=== PATIENT | male | born 1990 | race Two or more races ===

== ENCOUNTER 2018-05-23 12:18 | Emergency (ER) | payer MEDICAID ==
[~2018-05-23] VITALS: Ht 162.6 cm; Wt 78.5 kg
--- NOTE | 2018-05-23 12:34 | NUR ---
ED Nurse Note: Pt walked in to ED with spouse due to lower abdominal pain for over 1 month. no n/v/d. Pain 5/10 jerilyn. Monitor attached. Will cont to monitor.
--- NOTE | 2018-05-23 12:41 | NUR ---
ED Nurse Note: Blood drawn, urine collected and sent to lab.
[2018-05-23 13:18] LABS: ANION GAP 7 mmol/L (5-15); BLOOD UREA NITROGEN 16 mg/dL (7-18); CALCIUM 9.1 MG/DL (8.5-10.1); CARBON DIOXIDE 28 MMOL/L (21-32); CHLORIDE 103 MMOL/L (98-107); POTASSIUM 4.2 MMOL/L (3.5-5.1); SODIUM 138 MMOL/L (136-145)
[2018-05-23 13:19] LABS: APPEARANCE,URINE CLEAR; BASOPHILS % (AUTO) 1.3 % (0.0-2.0); BILIRUBIN, URINE NEGATIVE (NEGATIVE); EOSINOPHILS % (AUTO) 1.8 % (0.0-3.0); GLUCOSE, URINE (UA) NEGATIVE (NEGATIVE); HEMATOCRIT 41.8 % (42.0-52.0); HEMOGLOBIN 14.2 G/DL (14.2-18.0); KETONES,URINE NEGATIVE (NEGATIVE); LEUKOCYTE ESTERASE ,URINE 1+ (NEGATIVE); LYMPHOCYTES % (AUTO) 24.5 % (20.0-45.0); MEAN CORPUSCULAR VOLUME 87 FL (80-99); MONOCYTES % (AUTO) 10.9 % (1.0-10.0); NEUTROPHILS % (AUTO) 61.6 % (45.0-75.0); NITRITE,URINE NEGATIVE (NEGATIVE); PH,URINE 6 (4.5-8.0); PLATELET COUNT 260 K/UL (150-450); PROTEIN,URINE NEGATIVE (NEGATIVE); RED BLOOD COUNT 4.82 M/UL (4.70-6.10); UROBILINOGEN,URINE NORMAL MG/DL (0.0-1.0); WHITE BLOOD COUNT 7.5 K/UL (4.8-10.8)
[2018-05-23 13:20] LABS: COLOR,URINE YELLOW
[2018-05-23 13:23] LABS: ALANINE AMINOTRANSFERASE 171 U/L (12-78); ALBUMIN 3.6 G/DL (3.4-5.0); ALBUMIN/GLOBULIN RATIO 1.1 (1.0-2.7); ALKALINE PHOSPHATASE 63 U/L (46-116); ASPARTATE AMINO TRANSFERASE 52 U/L (15-37); BILIRUBIN,TOTAL 0.2 MG/DL (0.2-1.0)
[2018-05-23 13:44] VITALS: BP 104/54
--- NOTE | 2018-05-23 13:57 | Emergency Room Report ---
History of Present Illness General Chief Complaint: Abdominal Pain Source: Patient Present Illness HPI 27-year-old male with no significant past medical history here complaining of one month of diffuse abdominal pain. Patient is rating the pain 5 out of 10, intermittent in, specifically after eating spicy food. Denies pain radiation or referred pain. Denies nausea, vomiting, diarrhea and constipation. Denies recent travel or antibiotic use. Patient is a heavy tobacco smoker and ate spicy food every day. Complains of acid reflux after eating. Denies blood in stool or any vomiting. He further complains of fever months of urinary urgency and frequency with exacerbation of nights. Denies postvoid L residue. He reports he was recently diagnosed with urinary incontinence and was about to get a vasectomy when the surgeon decided to further investigate the reason of abdominal distention. She denies fever and chills. Denies blood in the urine, is sexually active with one female partner, denies penile discharge. Has not had any prostate check.he further denies chest pain, SOB, palpitation, dizziness , and headache Further denies daily use of alcohol and drug use Allergies: Coded Allergies: No Known Allergies (Unverified , 05/23/18) Patient History Past Medical History: see triage record Past Surgical History: unable to obtain Social History: Reports: smoking - daily tobacco user Immunizations: UTD Reviewed Nursing Documentation: PMH: Agreed; PSxH: Agreed Nursing Documentation-PMH Past Medical History: No Stated History Review of Systems All Other Systems: negative except mentioned in HPI Physical Exam Vital Signs Date Time Temp Pulse Resp B/P (MAP) Pulse Ox O2 Delivery O2 Flow Rate FiO2 05/23/18 12:26 98.4 77 16 116/77 98 Room Air Sp02 EP Interpretation: reviewed, normal General Appearance: normal inspection, well appearing, no apparent distress, alert Head: normocephalic Eyes: bilateral eye normal inspection, bilateral eye PERRL ENT: normal ENT inspection, normal pharynx Neck: normal inspection, full range of motion, supple Respiratory: normal inspection, lungs clear, no rhonchi, no wheezing Cardiovascular #1: normal inspection, regular rate, rhythm, no edema, no murmur Gastrointestinal: normal bowel sounds, non tender, no mass, no guarding, no rebound, distended - bilateral her abdomen, other - No suprapubic tenderness, no McBurney's and no rovsings, Ibarra's sign negative Rectal: deferred Genitourinary: no CVA tenderness Musculoskeletal: normal inspection, back normal Neurologic: normal inspection, alert, oriented x3 Psychiatric: normal inspection, judgement/insight normal Skin: normal inspection, normal color, no rash, warm/dry, well hydrated, normal turgor Lymphatic: normal inspection, no adenopathy Medical Decision Making PA Attestation all diagnoses and treatment plans are reviewed and discussed with supervising physician Dr. Grullon Diagnostic Impression: Primary Impression: Prostatitis Additional Impressions: Gastritis Fecal retention ER Course 27-year-old male with no significant past medical history here complaining of one month of diffuse abdominal pain. Patient is rating the pain 5 out of 10, intermittent in, specifically after eating spicy food. Denies pain radiation or referred pain. Denies nausea, vomiting, diarrhea and constipation. Denies recent travel or antibiotic use. Patient is a heavy tobacco smoker and ate spicy food every day. Complains of acid reflux after eating. Denies blood in stool or any vomiting. He further complains of fever months of urinary urgency and frequency with exacerbation of nights. Denies postvoid L residue. He reports he was recently diagnosed with urinary incontinence and was about to get a vasectomy when the surgeon decided to further investigate the reason of abdominal distention. She denies fever and chills. Denies blood in the urine, is sexually active with one female partner, denies penile discharge. Has not had any prostate check.he further denies chest pain, SOB, palpitation, dizziness , and headache Further denies daily use of alcohol and drug use Ddx considered but are not limited to gastritis, peptic ulcer, gastric ulcer, prostatitis, fatty liver Vital signs: are WNL, pt. is afebrile H&PE are most consistent with prostatitis, gastritis, fecal retention ORDERS: CBC, CMP, lipase, UA, EKG, abd CT no contrast, Rocephin 250 mg IM, doxycycline, omeprazole ED INTERVENTIONS:Rocephin 250 mg IM DISCHARGE: At this time pt. is stable for d/c to home. Will provide printed patient care instructions, and any necessary prescriptions. Care plan and follow up instructions have been discussed with the patient prior to discharge. patient to follow with primary care provider for referral to gastroenterology for endoscopy and diagnosis possible peptic versus gastric ulcer, follow with PCP for further assessment prostatitis and had another urine sample collected in 2 weeks. Avoid spicy and acidic food. Avoid smoking AST and ALT elevated. 1+ blood and RBC in UA CT/MRI/US Diagnostic Results CT/MRI/US Diagnostic Results : Imaging Test Ordered: abd CT no contrast Impression IMPRESSION: 1. Mild wall thickening of colonic splenic flexure and proximal descending colon is likely related to underdistention. Cannot exclude a mild colitis. No adjacent inflammatory changes, free air, or fluid collections. 2. Mild fecal retention in the sigmoid colon and rectum may suggest mild constipation. Last Vital Signs Date Time Temp Pulse Resp B/P (MAP) Pulse Ox O2 Delivery O2 Flow Rate FiO2 05/23/18 13:44 98.4 74 17 104/54 99 Room Air Disposition: HOME, SELF-CARE Condition: Stable Scripts Omeprazole (OMEPRAZOLE) 20 Mg Capsule.dr 20 MG ORAL DAILY, #30 CAP Prov: Amanda Bergman 05/23/18 Doxycycline Monohydrate* (DOXYCYCLINE MONOHYDRATE*) 100 Mg Capsule 100 MG ORAL TWICE A DAY for 10 Days, #20 CAP 0 Refills Prov: Amanda Bergman 05/23/18 Referrals: NON PHYSICIAN (PCP) Patient Instructions: Abdominal Pain, Adult, Urinary Tract Infection, Easy-to- Read Amanda Bergman May 23, 2018 13:56
--- NOTE | 2018-05-23 14:26 | Diagnostic Imaging Report ---
EXAM: CT Abdomen and Pelvis Without Intravenous Contrast CLINICAL HISTORY: PAIN TECHNIQUE: Axial computed tomography images of the abdomen and pelvis without intravenous contrast. CTDI is 12.38 mGy and DLP is 690 mGy-cm. One or more of the following dose reduction techniques were used: automated exposure control, adjustment of the mA and/or kV according to patient size, use of iterative reconstruction technique. COMPARISON: No relevant prior studies available. FINDINGS: Lung bases: Unremarkable. No consolidation. No effusions. ABDOMEN: Liver: Unremarkable. Gallbladder and bile ducts: The gallbladder is contracted. No calcified stones. No ductal dilation. Pancreas: Unremarkable. No ductal dilation. Spleen: Unremarkable. No splenomegaly. Adrenals: Unremarkable. No mass. Kidneys and ureters: Unremarkable. No obstructing stones. No hydronephrosis. Stomach and bowel: Mild wall thickening of colonic splenic flexure and proximal descending colon is likely related to underdistended loops. Mild fecal retention in the sigmoid colon and rectum may suggest mild constipation. Remainder the colon appears unremarkable. No abnormally distended loops of small bowel. GE junction and stomach appear unremarkable. PELVIS: Appendix: Appendix appears normal. Bladder: Unremarkable. No stones. Reproductive: The prostate gland and seminal vesicles appear unremarkable. ABDOMEN and PELVIS: Intraperitoneal space: Unremarkable. No free air. No significant fluid collection. Bones/joints: No acute fracture. No dislocation. Soft tissues: Unremarkable. Vasculature: Unremarkable. No abdominal aortic aneurysm. Lymph nodes: Unremarkable. No enlarged lymph nodes. IMPRESSION: 1. Mild wall thickening of colonic splenic flexure and proximal descending colon is likely related to underdistention. Cannot exclude a mild colitis. No adjacent inflammatory changes, free air, or fluid collections. 2. Mild fecal retention in the sigmoid colon and rectum may suggest mild constipation.
[2018-05-23] MEDS ORDERED: OMEPRAZOLE20 M2 ORAL (14:53)
[2018-05-23] MEDS ORDERED: DOXYCYCLINE MO100 MG ORAL (14:53)
[2018-05-23] MEDS ORDERED: Lidocaine 1% MPF 10mg/ml 5ml INJ ONE (15:00)
[2018-05-23 15:19] VITALS: BP 115/62
[2018-05-23 15:20] VITALS: BP 115/62
--- NOTE | 2018-05-23 15:20 | NUR ---
ED Nurse Note: Pt is clear to be discharged by ERMD. Discharge paper and prescription given, pt verbalized understanding of dicharge instruction. AOx4, VSS. Wristband and IV removed. Pt ambulated out with steady gait with all belongings.
== END 2018-05-23 15:20 | disposition home or self-care (01) ==
LOC: EMR 12:42
DX: N41.9 Inflammatory disease of prostate, unspecified (principal); K29.70 Gastritis, unspecified, without bleeding; K59.00 Constipation, unspecified; Z72.0 Tobacco use
CPT/HCPCS: 36415; 74176; 80053; 81003; 83690; 85025; 87491; 87590; 93005; 96372; 96374; 99284; J0696